=== PATIENT | female | born 1990 | race Hispanic/Latino ===

== ENCOUNTER 2016-12-20 15:36 | Emergency (ER) | payer OTHER ==
[2016-12-20 15:37] VITALS: BMI 30.7
[2016-12-20 15:42] VITALS: BP 104/72; PULSE 97; RESP 18; TEMP 98.8; O2SAT 99
--- NOTE | 2016-12-20 16:28 | C.PDOC ---
History Of Present Illness 26 yo female c/o headache to the left side. PT notes that she was at work, a crate fell on her head, and then rolled out. She continued to work for a little bit but then developed a headache. TOok advil prior to arrival . No loc, no change in vision, no n/v. Tolerating water since incident. - HPI Time Seen by Provider: 12/20/16 15:49 Chief Complaint (Nursing): Headache History Per: Patient History/Exam Limitations: no limitations Onset/Duration Of Symptoms: Hrs Past Medical History Vital Signs: Last Vital Signs Temp 98.8 F 12/20/16 15:40 Pulse 97 H 12/20/16 15:40 Resp 18 12/20/16 15:40 BP 104/72 12/20/16 15:40 Pulse Ox 99 12/20/16 15:40 - Medical History PMH: HTN Denies: Chronic Kidney Disease Surgical History: Appendectomy (2009) Family History: States: Unknown Family Hx - Social History Hx Alcohol Use: Yes Hx Substance Use: Yes Review Of Systems Except As Marked, All Systems Reviewed And Found Negative. Neurological: Positive for: Headache Physical Exam - Physical Exam Appears: Well, Non-toxic, No Acute Distress Skin: Normal Color, Warm, Dry Head: Normacephalic, Tenderness ((+) left parietal tenderness and swelling), Swelling, Abrasion Eye(s): bilateral: Normal Inspection, PERRL, EOMI Ear(s): Bilateral: Normal Nose: Normal Oral Mucosa: Moist Throat: Normal, No Erythema, No Exudate, No Drooling Neck: Normal, Normal ROM, Supple Chest: Symmetrical Cardiovascular: Rhythm Regular Respiratory: Normal Breath Sounds Gastrointestinal/Abdominal: Normal Exam Back: Normal Inspection Extremity: Normal ROM Neurological/Psych: Oriented x3, Normal Speech, Normal Cognition, Normal Cranial Nerves (2-12 grossly intact) ED Course And Treatment O2 Sat by Pulse Oximetry: 99 Progress Note: I discussed the risk (radiation) and benefit (finding a problem needing surgery) with the patient. The patient is acting normally and has a normal neurological exam. Patient agrees that at this time no CT scan will be done. If there is any change or new concern, the patient will return as soon as possible to the ED for further evaluation. Tylenol and PO challenge ordered. On reassessment, patient is resting comfortably, is tolerating PO, and pain has improved. Patient has no neurologic deficit, photophobia, rash, fever, or nuchal rigidity. Patient was instructed to follow up with physician/ clinic in 1-2 days. Disposition - Disposition Disposition: HOME/ ROUTINE Disposition Time: 16:31 Condition: STABLE Additional Instructions: Follow up with primary medical doctor in 1-3 days without fail for further evaluation. Take medications as prescribed. Return to the emergency department at any time if symptoms persist or worsen. Instructions: Head Injury (ED) Forms: [facility] (Ukrainian) - Clinical Impression Clinical Impression: Head contusion
== END 2016-12-20 16:51 | disposition home or self-care (01) ==
LOC: C.ER 15:36
DX: S00.03XA Contusion of scalp, initial encounter (principal); W20.8XXA Other cause of strike by thrown, projected or falling object, initial encounter; Y93.89 Activity, other specified; Y92.89 Other specified places as the place of occurrence of the external cause; Y99.0 Civilian activity done for income or pay